=== PATIENT | female | born 1965 | race Two or more races ===

== ENCOUNTER 2020-05-16 14:18 | Emergency (ER) | payer SELFPAY ==
[~2020-05-16] VITALS: Ht 170.2 cm; Wt 74.8 kg
[~2020-05-16 14:18] MED LIST: Tetracaine 0.5% Opth 4ml Soln LEFT EYE ONE
[2020-05-16 14:20] VITALS: BP 134/85
--- NOTE | 2020-05-16 14:20 | NUR ---
ED Nurse Note: Pt brought in by ambulance from [facility] d/t right eye irritation x 1 month d/t contact lense. Respirations even and unlabored on room air. Vitals stable as documented. A+Ox4, speaking in full sentences.
[2020-05-16] MEDS ORDERED: Fluorescein Strips OP ONE (14:30)
[2020-05-16] MEDS ORDERED: Ciprofloxacin Opth Soln 5ml RIGHT EYE ONE (14:30)
--- NOTE | 2020-05-16 14:40 | Emergency Room Report ---
History of Present Illness General Chief Complaint: Eye Problems Source: Patient Present Illness HPI Disclaimer: Please note that this report is being documented using CallmyName technology. This can lead to erroneous entry secondary to incorrect interpretation by the dictating instrument. HPI: 54-year-old female no past medical history presents with right eye pain. She states that she wears colored contacts and has not removed her contact over the past month however usually is able to move it around but for the past 3 days patient has had increased pain in the right eye and unable to remove her contact. Pain is approximately 8 out of 10 in the right eye worse with light. She denies any discharge from the eye. She does report blurry vision in the eye. PMH: Patient denies any past medical history PSH: Reviewed Social Hx: She denies any smoking drinking or illicit drug use Allergies: Coded Allergies: No Known Allergies (Unverified , 05/16/20) COVID-19 Screening Contact w/high risk pt: No Experienced COVID-19 symptoms?: No COVID-19 Testing performed ACADEMIC PHYSICIAN: No Patient History Reviewed Nursing Documentation: PMH: Agreed; PSxH: Agreed Nursing Documentation-PMH Past Medical History: No Stated History Review of Systems All Other Systems: negative except mentioned in HPI Physical Exam Vital Signs Date Time Temp Pulse Resp B/P (MAP) Pulse Ox O2 Delivery O2 Flow Rate FiO2 05/16/20 14:10 98.8 103 17 130/82 (98) 98 Room Air Sp02 EP Interpretation: reviewed, normal General Appearance: well appearing, no apparent distress Head: normocephalic, atraumatic Eyes: right eye photophobia, right eye other - Conjunctive are injected on right, contact lens in place in right eye, removed by me. Under fluorescein exam multiple corneal abrasions noted in the field of vision around 9,12 and 3: 00; left eye normal inspection; bilateral eye EOMI ENT: hearing grossly normal, moist mucus membranes Neck: full range of motion, supple Respiratory: lungs clear, normal breath sounds, no rhonchi, no respiratory distress, no retraction, no wheezing Cardiovascular #1: normal peripheral pulses, regular rate, rhythm, no murmur Gastrointestinal: non tender, soft, non-distended, no guarding Neurologic: alert, oriented x3, no focal defects Skin: normal color, warm/dry Procedures Additional Procedure Procedure Narrative Foreign body removal Verbal consent obtained, indication was contact lens in the right eye, I anesthetized with tetracaine eyedrops, 2 drops, and I was successfully able to remove a contact lens from the right eye. Patient tolerated procedure well without complication. Medical Decision Making Diagnostic Impression: Primary Impression: Contact lens stuck Additional Impression: Corneal abrasion of right eye due to contact lens ER Course Patient presented with right eye pain. This was secondary to a prolonged the patient wearing a contact lens for at least 1 month. Contact lens was removed by me in the ER. She did have findings of corneal abrasions of the eye. There was no purulent discharge noted, there was fluorescein uptake but I did not notice any ulceration. Patient felt improved after medication in the ER. Will be discharged home on ciprofloxacin eyedrops, instructions to avoid further contact use at this time. Patient was provided the antibiotic drops in the ER for home. She was instructed to follow-up with her primary doctor and ophthalmology. She was given strict return precautions. Last Vital Signs Date Time Temp Pulse Resp B/P (MAP) Pulse Ox O2 Delivery O2 Flow Rate FiO2 05/16/20 14:20 98.5 77 17 134/85 99 Room Air Status: improved Disposition: HOME, SELF-CARE Condition: Improved Scripts Ibuprofen* (MOTRIN*) 600 Mg Tablet 600 MG ORAL Q6H PRN for For Pain, #30 TAB 0 Refills Prov: Peter Treadwell M.D. 05/16/20 Peter Treadwell M.D. May 16, 2020 14:40
[2020-05-16] MEDS ORDERED: IBUPROFEN600 M1 ORAL (14:44)
--- NOTE | 2020-05-16 14:44 | NUR ---
ED Nurse Note: after ED MD removed contact lense, pt's right eye visual acuity improved from legally blind to 20/100.
[2020-05-16 15:20] VITALS: BP 131/79
--- NOTE | 2020-05-16 15:20 | NUR ---
Homeless Discharge: Patient is being discharged from medical care. Awake, alert and oriented x4. After care instructions, including referral to community resources were given. Patient verbalized understanding of After care instructions; at this time patient does not request medications, equipment or placement. Patient signed patient consent in the medical record for patient destination upon discharge. All medical devices such as ID band were removed. Patient ambulated out with all personal belongings with steady gait. Pt was given sandwiches and juices. Pt also requested clothing and was provided shirt, pants, and sweater. Pt did not provided discharge location
== END 2020-05-16 15:20 | disposition home or self-care (01) ==
LOC: EDBD 14:18 → EMR 14:40
DX: T15.01XA Foreign body in cornea, right eye, initial encounter (principal); H18.821 Corneal disorder due to contact lens, right eye
CPT/HCPCS: 99283